=== PATIENT | male | born 1990 | race Caucasian/White ===

== ENCOUNTER 2016-08-26 12:05 | Emergency (ER) | payer OTHER ==
[~2016-08-26] VITALS: Ht 177.8 cm; Wt 63.6 kg
[2016-08-26 12:08] VITALS: BP 132/86; PULSE 80; RESP 20; O2SAT 98
--- NOTE | 2016-08-26 12:27 | ED.REPORT ---
HPI-General Illness Date of Service Aug 26, 2016 ED Provider: Kala Rosales MD 25 year old male with a history of asthma who is an everyday smoker presents to the ER complaining of sharp "jabbing" lower left chest pain that onset suddenly while smoking a cigarette around 11:00 today. Shortly after he has experienced dizziness, nausea, and loss of balance. Pain is rated as 2/10 in severity currently, but periodically spikes to 4/10. Lately he has been under a lot of stress due to his fiance's recent miscarriage and D&C. He does not voice any further medical complaints at this time. Nursing Notes Stated Complaint: ABD PAIN,DIZZY,CP Chief Complaint: Chest Pain-Non Cardiac Nature Nursing Notes Reviewed: Yes Allergies: Coded Allergies: No Known Allergies (Unverified , 08/26/16) General Time Seen by MD: 12:26 Chief Complaint Chest pain Hx Obtained From: Patient Arrived By: Walk-in Sudden in Onset?: Yes Onset Occurred: 1 - 4 hours ago (1.5) Symptom Duration: Since onset Location: : Chest (left)No: Leg left Quality: Painful, Sharp, Stabbing Severity: Current: Pain level 2 out of 10 Severity: Maximum: Pain level 4 out of 10 Associated with: Reports: Dizziness, Nausea Pertinent Negative: Pt denies other symptoms Context Related History: Reports Asthma Similar Sx Previous: No Past Medical History Past Medical History Reports: Asthma Smoking History Current Every Day Smoker Ambulatory Status Independent Review of Systems Full Review of Systems Constitutional: Denies: Chills, Fever Respiratory: Denies: Non-productive cough, Shortness of breath Cardiovascular: Reports: Chest pain GI: Reports: Nausea, Denies: Vomiting Skin: Denies Diaphoresis Neurologic: Reports: Dizziness Complete sys rev & neg: except as marked. Physical Exam Vital Signs Vital Signs Date Time Temp Pulse Resp B/P Pulse Ox O2 Delivery O2 Flow Rate FiO2 08/26/16 14:57 62 16 123/62 100 Room Air 08/26/16 12:08 37 80 20 132/86 98 Room Air Initial VS: Reviewed Head / Eyes: Atraumatic, Normocephalic Neck: Supple, Non-tender, Full range of motion Abdomen / GI: Soft, Non-tender, No guarding, No rebound, No distention Extremities: Vascular intact, Neuro intact, No swelling, No tenderness Skin: Warm, Dry, No cyanosis Neurologic: Alert, Oriented, Nonfocal General/Constitutional: Awake, Alert, Well developed, Well nourished Respiratory / Chest: Breath sounds NL, No respiratory distress, No rales, No rhonchi, No wheezing Cardiovascular: Heart rate NL, Regular rhythm, Heart sounds NL, Cap refill not delayed, Peripheral circulation NL Interpretation & Diagnostics Lab Results Interpretation Result Diagram: 08/26/16 1244 08/26/16 1244 Test 08/26/16 12:44 White Blood Count 4.9th/mm3 (3.8-10.1) Red Blood Count 5.11mil/mm3 (4.40-5.80) Hemoglobin 15.2g/dL (13.8-17.2) Hematocrit 44.5% (41.0-50.0) Mean Corpuscular Volume 87.1fL (81-100) Mean Corpuscular Hemoglobin 29.7pg (27.0-35.0) Mean Corpuscular Hemoglobin Concent 34.2% (32.0-37.0) Red Cell Distribution Width 12.7% (12.3-15.4) Platelet Count 258bil/L (150-400) Neutrophils (%) (Auto) 51.0% (40-74) Lymphocytes (%) (Auto) 37.7% (14-46) Monocytes (%) (Auto) 5.8% (4-12) Eosinophils (%) (Auto) 4.9% (0-5) Basophils (%) (Auto) 0.4% (0-3) Sodium Level 140mEq/L (134-144) Potassium Level 4.4mEq/L (3.5-5.2) Chloride Level 103mEq/L (97-108) Carbon Dioxide Level 22mmol/L (18-29) Blood Urea Nitrogen 12mg/dL (6-20) Creatinine 0.75mg/dL (0.76-1.27) Estimat Glomerular Filtration Rate 136mL/min (>59) Glucose Level 105mg/dL (60-99) Calcium Level 9.3mg/dL (8.5-10.1) Magnesium Level 1.8mg/dL (1.6-2.6) Total Bilirubin 0.9mg/dL (0.0-1.2) Aspartate Amino Transf (AST/SGOT) 15U/L (0-50) Alanine Aminotransferase (ALT/SGPT) 13U/L (0-44) Alkaline Phosphatase 42U/L (25-150) Troponin T < 0.010ug/L (0.0-0.011) Total Protein 7.2g/dL (6.4-8.4) Albumin 4.8g/dL (3.4-5.0) Hold Hamm Top Tube Received (Received) ECG Interpretation ECG Interpretation: Sinus rhythm, rate 76 J point elevation in all leads except for lead [address] Gil, Cardiology 12:37-12:40 Time: 12:44 Interpreted by: ED physician X-Ray Chest Interpretation Chest Xray Interpretation: IMPRESSION: No acute pulmonary process. Dictated by: Lissy Mendoza M.D. on 08/26/2016 at 13:38 Approved by: Lissy Mendoza M.D. on 08/26/2016 at 13:39 View: AP & lat Interpretation / Wet Read by: Interpret - Radiologist Re-Eval/Medical Decision Time of Eval: 13:55 Re-Evaluation/Progress Note: Discussed lab and radiology results and plan to discharge. Patient is amenable to the plan. Return precautions given. All other questions addressed. 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 I do not believe that there is any immediately dangerous or life-threatening cause for your symptoms at this time. I think that your symptoms are likely due to the current stress in your life. It is OK to use ibprofen and/or tylenol to help with the pain. Return to the ER if you develop uncontrollable chest pain, radiation of pain into your arm/shoulder/neck, shortness of breath, sweating, nausea, or any other worsening or concerning symptoms. I hope that you feel better soon. Scribe Attestation Portions of this note were transcribed by Wang Olmedo. I, Dr. Rosales, personally performed the history, physical exam and medical decision-making; I reviewed and confirmed the accuracy of the information in the transcribed note. Signed by: Chris Clifford, 08/26/2016 and 14:37 Kala Rosales MD Aug 26, 2016 12:27 WANG OLMEDO Aug 26, 2016 12:34
[2016-08-26 13:30] LABS: BASOPHILS % (AUTO) 0.4 % (0-3); EOSINOPHILS % (AUTO) 4.9 % (0-5); MONOCYTES % (AUTO) 5.8 % (4-12); Mean Corpuscular Hemoglobin 29.7 pg (27.0-35.0); Mean Corpuscular Volume 87.1 fL (81-100); Platelet Count 258 bil/L (150-400)
--- NOTE | 2016-08-26 13:40 | DRSVH ---
PROCEDURE: X-RAY CHEST, TWO VIEWS ([id number]) INDICATIONS: acute chest pain TECHNIQUE: 2 views of the chest were acquired. COMPARISON: None. FINDINGS: Surgical changes and devices: None. Lungs and pleura: No pleural effusions or pneumothorax. Lungs are clear. Mediastinum: Mediastinal contours are normal. Heart size is normal. Bones and chest wall: No suspicious bony abnormalities. Soft tissues appear unremarkable. IMPRESSION: No acute pulmonary process. Dictated by: Lissy Mendoza M.D. on 08/26/2016 at 13:38 Approved by: Lissy Mendoza M.D. on 08/26/2016 at 13:39
[2016-08-26 13:42] LABS: TROPONIN T < 0.010 ug/L (0.0-0.011)
[2016-08-26 13:50] LABS: Magnesium 1.8 mg/dL (1.6-2.6)
[2016-08-26 14:57] VITALS: BP 123/62; PULSE 62; RESP 16; O2SAT 100
== END 2016-08-26 14:58 | disposition home or self-care (01) ==
LOC: SED 12:05
DX: R07.89 Other chest pain (principal); F43.0 Acute stress reaction; R42 Dizziness and giddiness; R11.0 Nausea; J45.909 Unspecified asthma, uncomplicated; F17.200 Nicotine dependence, unspecified, uncomplicated